=== PATIENT | female | born 1970 | race Caucasian/White ===

== ENCOUNTER 2016-12-21 09:24 | Emergency (ER) | payer MEDICAID, OTHER ==
[2016-12-21 10:15] VITALS: BP 132/111
--- NOTE | 2016-12-21 11:04 | RAD ---
INDICATION: Remote right ankle trauma, continued pain. TECHNIQUE: 3 views of the right ankle were obtained. FINDINGS: There is mild soft tissue swelling present along the lateral aspect of the right ankle. The bones are in normal alignment. There is ossification within the tibiofibular syndesmosis suggestive of chronic ligament injury. No acute fracture is seen. There is mild osteoarthritic change in the tibiotalar joint. IMPRESSION: 1. No evidence for acute fracture. 2. Ossification within the tibiofibular syndesmosis suggestive of chronic ligament injury.
--- NOTE | 2016-12-21 11:31 | UC ---
Lower Extremity/Ankle HPI - HPI Summary HPI Summary: FOUR WEEKS AGO TWISTED RIGHT ANKLE, CONTINUED PAIN AND SWELLING TO RIGHT ANKLE. HAD TORN LIGAMENT INJURY TO RIGHT ANKLE A TEENAGER. - History of Current Complaint Chief Complaint: UCLowerExtremity Stated Complaint: RIGHT FOOT INJURY Time Seen by Provider: 12/21/16 10:29 Hx Obtained From: Patient Onset/Duration: Sudden Onset, Lasting Weeks, Still Present Severity Initially: Severe Severity Currently: Moderate Aggravating Factor(s): Standing, Ambulation Alleviating Factor(s): Rest, Elevation Able to Bear Weight: Yes - Risk Factors Gout Risk Factors: Obesity Septic Arthritis Risk Factor: Negative - Allergies/Home Medications Allergies/Adverse Reactions: Allergies Allergy/AdvReac Type Severity Reaction Status Date / Time Penicillins [PCN] Allergy Unknown Verified 12/21/16 10:02 Reaction Details Home Medications: Home Medications Calcium Carbonate-Vitamin D [Calcium 600+D] 1 tab PO DAILY 12/21/16 [History Confirmed 12/21/16] Hydrochlorothiazide TAB* [Hydrodiuril TAB*] 25 mg PO DAILY 12/21/16 [History Confirmed 12/21/16] Potassium Chlor TAB* [Klor Con ER TAB*] 10 meq PO DAILY 12/21/16 [History Confirmed 12/21/16] Sertraline* [Zoloft*] 50 mg PO DAILY 12/21/16 [History Confirmed 12/21/16] Simvastatin [Zocor 40 MG (NF)] 40 mg PO QPM 12/21/16 [History Confirmed 12/21/16 ] ValACYclovir (*) [Valtrex 1 GM(*)] 1 gm PO DAILY 12/21/16 [History Confirmed ] PMH/Surg Hx/FS Hx/Imm Hx Previously Healthy: Yes Cardiovascular History Of: Reports: Hypertension - Surgical History Surgical History: Yes Surgery Procedure, Year, and Place: C section - Family History Known Family History: Negative: Other - JOINT LAXITY - Social History Occupation: Disabled Lives: With Family Alcohol Use: None Substance Use Type: None Smoking Status (MU): Never Smoked Tobacco Review of Systems Constitutional: Negative Skin: Negative Eyes: Negative ENT: Negative Respiratory: Negative Cardiovascular: Negative Gastrointestinal: Negative Genitourinary: Negative Motor: Negative Neurovascular: Negative Musculoskeletal: Arthralgia, Edema, Myalgia Neurological: Negative Psychological: Negative All Other Systems Reviewed And Are Negative: Yes Physical Exam Triage Information Reviewed: Yes Appearance: Well-Appearing, No Pain Distress, Well-Nourished, Obese Vital Signs: Initial Vital Signs Temp 98.8 F 12/21/16 09:57 Pulse 90 12/21/16 09:57 Resp 16 12/21/16 09:57 BP 132/111 12/21/16 09:57 Pulse Ox 96 12/21/16 09:57 Vital Signs Reviewed: Yes Eye Exam: Normal Eyes: Positive: Conjunctiva Clear ENT Exam: Normal ENT: Positive: Normal ENT inspection, Hearing grossly normal, Pharynx normal, TMs normal Dental Exam: Normal Neck exam: Normal Neck: Positive: Supple, Nontender, No Lymphadenopathy Respiratory Exam: Normal Respiratory: Positive: Chest non-tender, Lungs clear, Normal breath sounds, No respiratory distress, No accessory muscle use Cardiovascular Exam: Normal Cardiovascular: Positive: RRR, No Murmur, Pulses Normal Abdominal Exam: Normal Abdomen Description: Positive: Nontender, No Organomegaly Musculoskeletal: Positive: Strength Limited @ - RIGHT ANKLE, ROM Limited @ - RIGHT ANKLE, Edema @ - MILD EDEMA RIGHT ANKLE Neurological Exam: Normal Psychological Exam: Normal Skin Exam: Normal Diagnostics - Laboratory Diagnostic Studies Completed/Ordered: XRAY ANKLE: NO FRACTURE; RIGHT TIBIOFIBULAR SYNDESMOSIS SUGGESTIVE OF CHRONIC LIGAMENT INJURY Lower Extremity Course/Dx - Differential Dx/Diagnosis Differential Diagnosis/HQI/PQRI: Fracture (Closed), Sprain, Strain Provider Diagnoses: RIGHT ANKLE SPRAIN. RIGHT TIBIOFIBULAR SYNDESMOSIS SUGGESTIVE OF CHRONIC LIGAMENT INJURY Discharge - Discharge Plan Condition: Stable Disposition: HOME Patient Education Materials: Ankle Sprain (ED) Referrals: Cayetano Ribera MD [Medical Doctor] - Janae Meza MD [Primary Care Provider] - Additional Instructions: PHYSICAL THERAPY REFERRAL: You have been prescribed physical therapy. Treatments may include stretching, exercise, application of heat or cold, and other modalities. After an injury, PT can reduce swelling and pain. In recovery, PT is used to restore mobility and strength. Your specific treatment goals are: ___X__ Reduction of Swelling (EGS, US, ice as needed) __X___ Pain Reduction (EGS, US, ice as needed) ___X__ TENS Pack Fitting and Instruction Wound Hydrotherapy ___X__ Preservation of Mobility ___X__ Cheondoism of Mobility ___X__ Strength Cheondoism ___X__ Work or Sports Hardening This instruction sheet also serves as your PHYSICAL THERAPY REFERRAL! Please take it with you to the therapist, so he/she will be aware of your diagnosis and treatment plan. You may see the physical therapist of your choice for these treatments, but may wish to check with your insurance to be sure the provider you select is covered. It's important to see the doctor to whom you have been referred for follow up.
== END 2016-12-21 11:42 | disposition home or self-care (01) ==
LOC: UCCORT 09:24
DX: S93.401A Sprain of unspecified ligament of right ankle, initial encounter (principal); X50.1XXA Overexertion from prolonged static or awkward postures, initial encounter; Y93.9 Activity, unspecified; Y92.9 Unspecified place or not applicable; M67.873 Other specified disorders of tendon, right ankle and foot; Z88.0 Allergy status to penicillin
CPT/HCPCS: 99203; G0463

== ENCOUNTER 2018-03-05 19:53 | Emergency (ER) | payer OTHER ==
[2018-03-05 20:03] VITALS: BP 144/110
--- NOTE | 2018-03-05 20:15 | ED ---
Lower Extremity - HPI Summary HPI Summary: 47-year-old female presents with right ankle pain for the past week. She states she rolled her ankle on the . She states since that she is having intermittent pain. She said pain is greatest over the medial aspect of her ankle. She has mild edema present. She denies any numbness or tingling. She denies any other injury. She still able to walk on it. She has been taking ibuprofen for pain which has been helping a little. She denies any previous fracture to the area but did tear a ligament in her ankle a while ago. She denies any fevers or rash. - History of Current Complaint Chief Complaint: EDExtremityLower Stated Complaint: RT ANKLE PAIN Time Seen by Provider: 03/05/18 20:01 Pain Intensity: 10 - Allergies/Home Medications Allergies/Adverse Reactions: Allergies Allergy/AdvReac Type Severity Reaction Status Date / Time Penicillins Allergy Intermediate Hives Verified 03/05/18 19:58 PMH/Surg Hx/FS Hx/Imm Hx Endocrine/Hematology History: Denies: Hx Anticoagulant Therapy Cardiovascular History: Reports: Hx Hypertension - Cancer History Hx Chemotherapy: No Hx Radiation Therapy: No - Surgical History Surgery Procedure, Year, and Place: C section Infectious Disease History: Unable to Obtain/Confirm Infectious Disease History: Denies: Hx Clostridium Difficile, Hx Hepatitis, Hx Human Immunodeficiency Virus (HIV), Hx of Known/Suspected MRSA, Hx Shingles, Hx Tuberculosis, Hx Known/ Suspected VRE, Hx Known/Suspected VRSA, History Other Infectious Disease, Traveled Outside the [place] in Last 30 Days - Family History Known Family History: Negative: Other - JOINT LAXITY - Social History Alcohol Use: None Substance Use Type: Reports: None Smoking Status (MU): Never Smoked Tobacco Review of Systems Negative: Fever Negative: Chest Pain Negative: Shortness Of Breath Positive: Myalgia - right ankle pain All Other Systems Reviewed And Are Negative: Yes Physical Exam Triage Information Reviewed: Yes Vital Signs On Initial Exam: Initial Vitals Temp Pulse Resp BP Pulse Ox 97.7 F 99 18 144/110 95 03/05/18 19:54 03/05/18 19:54 03/05/18 19:54 03/05/18 19:54 03/05/18 19:54 Vital Signs Reviewed: Yes Appearance: Positive: Well-Appearing Skin: Positive: Warm, Dry Head/Face: Positive: Normal Head/Face Inspection Eyes: Positive: Normal, Conjunctiva Clear Respiratory/Lung Sounds: Positive: Clear to Auscultation, Breath Sounds Present Cardiovascular: Positive: Normal, RRR Musculoskeletal: Positive: Strength/ROM Intact - right ankle with pain, Edema Right - mild, Other - tenderness medial aspect of right ankle, good pulses, capillary refill<2 secs, sensation grossly intact Neurological: Positive: Normal Psychiatric: Positive: Normal Diagnostics - Vital Signs Vital Signs Temp Pulse Resp BP Pulse Ox 03/05/18 19:54 97.7 F 99 18 144/110 95 - Laboratory Lab Statement: Any lab studies that have been ordered have been reviewed, and results considered in the medical decision making process. - Radiology ankle Xray Interpretation: Positive (See Comments) - IMPRESSION: SOFT TISSUE SWELLING. NO ACUTE OSSEOUS INJURY. IF SYMPTOMS PERSIST, RECOMMEND REPEAT IMAGING. Radiology Interpretation Completed By: Radiologist Lower Extremity Course/Dx - Course Course Of Treatment: 47-year-old female presents with right ankle pain for the past week. She states she rolled her ankle on the . She states since that she is having intermittent pain. She said pain is greatest over the medial aspect of her ankle. She has mild edema present. She denies any numbness or tingling. She denies any other injury. She still able to walk on it. She has been taking ibuprofen for pain which has been helping a little. She denies any previous fracture to the area but did tear a ligament in her ankle a while ago. She denies any fevers or rash. On exam tenderness of the medial aspect of right ankle. Neurovascular intact. X-ray shows soft tissue swelling no fracture. We will treat conservatively with rice. will have follow up with primary as has elevated blood pressure at this time with diagnosis of HTN. Patient understands agrees plan. - Diagnoses Differential Diagnosis/HQI/PQRI: Positive: Fracture (Closed), Sprain, Strain Provider Diagnoses: Right ankle pain, Elevated blood pressure reading Discharge - Sign-Out/Discharge Documenting (check all that apply): Discharge - Discharge Plan Condition: Good Disposition: HOME Patient Education Materials: Ankle Sprain (ED) Referrals: Janae Meza MD [Primary Care Provider] - Additional Instructions: Stay off ankle as much as possible Ice, elevate, keep in SAVANNA Ibuprofen or Tylenol every 6 hours for pain Follow up with primary if no improvement and about blood pressure as it is elevated at this time Return to ED if develop or any new or worsening symptoms - Billing Disposition and Condition Condition: GOOD Disposition: HOME
--- NOTE | 2018-03-05 20:31 | RAD ---
HISTORY: Right ankle pain COMPARISONS: Chambered 2016 VIEWS: 3, Frontal, lateral, and oblique views of the right ankle FINDINGS: BONE DENSITY: Normal. BONES: There is no displaced fracture. Again noted is hypertrophic bone formation lateral to the area which May reflect previous trauma, this is stable. There is no acute displaced fracture. There are calcaneal enthesophytes. JOINTS: There is no arthropathy. ALIGNMENT: There is no dislocation. SOFT TISSUES: There is circumferential soft tissue swelling. OTHER FINDINGS: None. IMPRESSION: SOFT TISSUE SWELLING. NO ACUTE OSSEOUS INJURY. IF SYMPTOMS PERSIST, RECOMMEND REPEAT IMAGING.
== END 2018-03-05 20:44 | disposition home or self-care (01) ==
LOC: ED 19:53
DX: M25.571 Pain in right ankle and joints of right foot (principal); I10 Essential (primary) hypertension
CPT/HCPCS: 99281

== ENCOUNTER 2018-11-12 15:44 | Emergency (ER) | payer OTHER ==
--- NOTE | 2018-11-12 18:26 | ED ---
Lower Extremity - HPI Summary HPI Summary: 48-year-old female presents with sore throat for the past week. She states that her left knee has been popping. States she has pain greatest when she flexes her knee. States it feels a little bit unstable. She also states that her blood pressure has been fluctuating. Systolics been between 140 and 110. Diastolic has been seen between 110-80. States she just started lisinopril a couple weeks. She has been following with her primary about blood pressure. She denies any chest pain or shortness breath. No headache or dizziness. She denies any sinus congestion. No fevers. No cough. - History of Current Complaint Chief Complaint: EDGeneral Stated Complaint: THROAT AND KNEE PAIN Time Seen by Provider: 11/12/18 17:37 Pain Intensity: 10 - Allergies/Home Medications Allergies/Adverse Reactions: Allergies Allergy/AdvReac Type Severity Reaction Status Date / Time Penicillins Allergy Intermediate Hives Verified 03/05/18 19:58 PMH/Surg Hx/FS Hx/Imm Hx Endocrine/Hematology History: Denies: Hx Anticoagulant Therapy Cardiovascular History: Reports: Hx Hypertension - Cancer History Hx Chemotherapy: No Hx Radiation Therapy: No - Surgical History Surgery Procedure, Year, and Place: C section Infectious Disease History: No Infectious Disease History: Denies: Hx Clostridium Difficile, Hx Hepatitis, Hx Human Immunodeficiency Virus (HIV), Hx of Known/Suspected MRSA, Hx Shingles, Hx Tuberculosis, Hx Known/ Suspected VRE, Hx Known/Suspected VRSA, History Other Infectious Disease, Traveled Outside the [place] in Last 30 Days - Family History Known Family History: Positive: Hypertension Negative: Other - JOINT LAXITY - Social History Alcohol Use: None Substance Use Type: Reports: None Smoking Status (MU): Never Smoked Tobacco Review of Systems Negative: Fever Positive: Sore Throat Negative: Chest Pain Negative: Shortness Of Breath Positive: Myalgia - left knee pain All Other Systems Reviewed And Are Negative: Yes Physical Exam Triage Information Reviewed: Yes Vital Signs On Initial Exam: Initial Vitals Temp Pulse Resp BP Pulse Ox 98.4 F 92 18 120/90 97 11/12/18 16:19 11/12/18 16:19 11/12/18 16:19 11/12/18 16:19 11/12/18 16:19 Vital Signs Reviewed: Yes Appearance: Positive: Well-Appearing Skin: Positive: Warm, Dry Head/Face: Positive: Normal Head/Face Inspection Eyes: Positive: Normal, EOMI, ANKIT, Conjunctiva Clear ENT: Positive: Normal ENT inspection, Pharynx normal, TMs normal, Uvula midline , Other - soft palate symmetric, cobblestoning present. Negative: Tonsillar swelling, Tonsillar exudate, Trismus, Muffled voice Neck: Positive: Supple, Nontender, No Lymphadenopathy Respiratory/Lung Sounds: Positive: Clear to Auscultation, Breath Sounds Present Cardiovascular: Positive: Normal, RRR Abdomen Description: Positive: Nontender, Soft Bowel Sounds: Positive: Present Musculoskeletal: Positive: Strength/ROM Intact - left knee, Other - tenderness over patella tendon, good pulses, pain greatest with flexion of knee, sensation grossly intact Neurological: Positive: Normal Psychiatric: Positive: Normal Diagnostics - Vital Signs Vital Signs Temp Pulse Resp BP Pulse Ox 11/12/18 16:19 98.4 F 92 18 120/90 97 - Laboratory Lab Results: Lab Results 11/12/18 Range/Units 18:16 Group A Strep Rapid Negative (Negative) Lab Statement: Any lab studies that have been ordered have been reviewed, and results considered in the medical decision making process. Lower Extremity Course/Dx - Course Course Of Treatment: 48-year-old female presents with sore throat for the past week. She states that her left knee has been popping. States she has pain greatest when she flexes her knee. States it feels a little bit unstable. She also states that her blood pressure has been fluctuating. Systolics been between 140 and 110. Diastolic has been seen between 110-80. States she just started lisinopril a couple weeks. She has been following with her primary about blood pressure. She denies any chest pain or shortness breath. No headache or dizziness. She denies any sinus congestion. No fevers. No cough. On exam pharynx cobblestoning present but otherwise normal. Lungs clear to auscultation. Tenderness over patella tendon and increased pain with flexion of the knee. Neurovascular intact. X-ray as arthritis. 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 told to treat with RICE. gave ortho referral if no improvement. Strep negative. told to follow up with primary about blood pressure. patient understand and agrees with plan. - Diagnoses Differential Diagnosis/HQI/PQRI: Positive: Contusion, Fracture (Closed), Sprain Provider Diagnoses: Left knee pain, Sore throat, Hypertension Discharge - Sign-Out/Discharge Documenting (check all that apply): Patient Departure - Discharge Plan Condition: Good Disposition: HOME Prescriptions: Cetirizine* [ZyrTEC 10 MG TAB*] 10 mg PO DAILY #10 tab Patient Education Materials: Knee Pain (ED) Referrals: Janae Meza MD [Primary Care Provider] - Kishore Bonilla MD [Medical Doctor] - Additional Instructions: place ice on the area take Tylenol or ibuprofen every 6 hours as needed for pain Follow up with ortho Follow up with primary about blood pressure gargle salt water take zyrtec once a day Return to ED if develop any new or worsening symptoms - Billing Disposition and Condition Condition: GOOD Disposition: Home
[2018-11-12 18:43] VITALS: BP 131/93
== END 2018-11-12 18:42 | disposition home or self-care (01) ==
LOC: ED 15:44
DX: J02.9 Acute pharyngitis, unspecified (principal); M25.562 Pain in left knee; M17.12 Unilateral primary osteoarthritis, left knee; I10 Essential (primary) hypertension; Z88.0 Allergy status to penicillin
CPT/HCPCS: 87651; 99282

== ENCOUNTER 2019-06-12 15:07 | Emergency (ER) | payer OTHER ==
[2019-06-12 16:00] VITALS: BP 115/74
--- NOTE | 2019-06-12 17:01 | UC ---
Lower Extremity/Ankle HPI - HPI Summary HPI Summary: 49-year-old woman comes in with a chief complaint of right ankle pain. Vital month ago patient hurt her right ankle. Pain is primarily on the medial aspect. Recently the pains got worse. She has been able to ambulate but that does make the pain worse. Not walking decreases the pain. No weakness or numbness. - History of Current Complaint Chief Complaint: UCLowerExtremity Stated Complaint: RIGHT ANKLE CONCERN Time Seen by Provider: 06/12/19 16:24 Hx Last Menstrual Period: 03/2019 Pain Intensity: 10 - Allergies/Home Medications Allergies/Adverse Reactions: Allergies Allergy/AdvReac Type Severity Reaction Status Date / Time Penicillins Allergy Intermediate Hives Verified 06/12/19 16:00 PMH/Surg Hx/FS Hx/Imm Hx Previously Healthy: Yes Endocrine History: Dyslipidemia Other History Of: Negative For: Anticoagulant Therapy - Surgical History Surgical History: Yes Surgery Procedure, Year, and Place: C section. tubal - Family History Known Family History: Positive: Hypertension Negative: Other - JOINT LAXITY - Social History Alcohol Use: None Substance Use Type: None Smoking Status (MU): Former Smoker When Did the Patient Quit Smoking/Using Tobacco: 2008 Review of Systems All Other Systems Reviewed And Are Negative: Yes Constitutional: Positive: Negative Skin: Positive: Negative ENT: Positive: Negative Respiratory: Positive: Negative Cardiovascular: Positive: Negative Gastrointestinal: Positive: Negative Motor: Positive: Negative Neurovascular: Positive: Negative Musculoskeletal: Positive: Other: - see hpi Neurological: Positive: Negative Psychological: Positive: Negative Is Patient Immunocompromised?: No Physical Exam Triage Information Reviewed: Yes Appearance: Well-Appearing, No Pain Distress, Well-Nourished Vital Signs: Initial Vital Signs Temp 98.4 F 06/12/19 15:53 Pulse 83 06/12/19 15:53 Resp 16 06/12/19 15:53 BP 115/74 06/12/19 15:53 Pulse Ox 98 06/12/19 15:53 Vital Signs Reviewed: Yes Eye Exam: Normal Eyes: Positive: Conjunctiva Clear Neck: Positive: Supple Respiratory: Positive: No respiratory distress Musculoskeletal: Positive: Other: - Right ankle has full range of motion. Tender to palpation on the medial aspect just anterior to the medial malleolus. Lateral malleolus is nontender the rest of the foot is nontender Achilles tendon is nontender and intact. Normal dorsalis pedis pulse normal capillary refill no sensation deficit. No skin break. Neurological Exam: Normal Neurological: Positive: Alert, Muscle Tone Normal Psychological Exam: Normal Psychological: Positive: Normal Response To Family, Age Appropriate Behavior Skin Exam: Normal Lower Extremity Course/Dx - Course Course Of Treatment: Patient Name: MALLIKA GUTIERRES Medical Record#: [id number] Ordering Physician: Jesus Ayala MD Acct.#: [id number] : 1970 Age: 49 Sex: F Location: [facility] Exam Date: 06/12/191617 ADM Status: REG ER Order Information: ANKLE RIGHT 3+VWS Accession Number: [id number] CPT: 55315 Indication: RIGHT ankle pain following twisting injury in May. Medial aspect pain. Comparison: March 05, 2018 Technique: AP, mortise, and lateral views RIGHT ankle. Report: Negative for fracture or malalignment. Mild talocrural joint osteophytosis without significant joint space narrowing. Soft tissue swelling most prominent over the lateral malleolus. Small plantar fascia origin bone spur. IMPRESSION: #. Negative for fracture or malalignment. #. Mild talocrural joint osteoarthritis. <Electronically signed by eBrnard Prajapati MD in [place]> 06/12/19 1700 I discussed the x-rays with the patient and her . No fracture seen. Nursing placed Ahsan wrap and gel splint patient neurovascular intact after placement. Also give the patient a cane to help with decreasing weight bearing. Plan is anti-inflammatories eyes elevation and rest and follow-up with orthopedics or sports medicine if not completely improved. - Differential Dx/Diagnosis Provider Diagnosis: Right ankle sprain Discharge - Sign-Out/Discharge Documenting (check all that apply): Patient Departure All imaging exams completed and their final reports reviewed: Yes - Discharge Plan Condition: Stable Disposition: HOME Prescriptions: Ibuprofen TAB* [Motrin TAB* 800 MG] 800 mg PO TID PRN #20 tab PRN Reason: Pain Patient Education Materials: Ankle Sprain (ED) Referrals: Anju Chandler MD [Primary Care Provider] - Cayetano Ribera MD [Medical Doctor] - [facility] [Provider Group] Additional Instructions: FOLLOW UP WITH ORTHOPEDICS OR SPORTS MEDICINE IF NOT COMPLETELY IMPROVED. GET REEVALUATED SOONER IF WORSE OR ANY QUESTIONS OR CONCERNS. - Billing Disposition and Condition Condition: STABLE Disposition: Home
== END 2019-06-12 17:18 | disposition home or self-care (01) ==
LOC: UCCORT 15:07
DX: S93.401A Sprain of unspecified ligament of right ankle, initial encounter (principal); X58.XXXA Exposure to other specified factors, initial encounter; Y92.9 Unspecified place or not applicable; Z87.891 Personal history of nicotine dependence
CPT/HCPCS: 99213; G0463